=== PATIENT | female | born 1990 | race Asian ===

== ENCOUNTER 2019-06-19 11:11 | Outpatient (CLI) | payer BC ==
--- NOTE | 2019-06-19 11:31 | ULT ---
EXAM: US Breast Limited Rt PROVIDED CLINICAL HISTORY: Right breast palpable abnormality COMPARISON: None FINDINGS: Limited sonographic interrogation was performed of the right breast the 7:00 position in the region o f palpable concern. A hypoechoic, solid-appearing, wider than tall mass with gently lobulated margins is demonstrated in the region of palpable concern. This measures at least 1.9 cm in greatest dimension. No shadowing is evident. 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 Per e patient, prior imaging of this region has been performed which is currently unavailable. Correlation with prior imaging is recommended. In the absence of comparison examination demonstrating stability, biopsy should be considered.
== END 2019-06-19 11:12 | disposition home or self-care (01) ==
LOC: BICULT 11:11
PROVIDERS: ATTEND Nurse Practitioner Family
DX: N63.13 Unspecified lump in the right breast, lower outer quadrant (principal)